=== PATIENT | female | born 1970 | race Caucasian/White ===

== ENCOUNTER 2021-09-15 02:50 | Inpatient (IN) | payer SELFPAY ==
[2021-09-15 05:17] VITALS: BMI 45.9
[2021-09-15] MEDS ORDERED: Albuterol 200 PUFF (6.7GM INHALER) INH PRN (07:53)
[2021-09-15] MEDS ORDERED: Acetaminophen 325 MG TAB PO PRN (07:53)
[2021-09-15] MEDS ORDERED: Acetaminophen 650 MG Suppository PR PRN (07:53)
[2021-09-15] MEDS ORDERED: Benzonatate 100 MG CAP PO PRN (07:53)
[2021-09-15] MEDS ORDERED: Prevnar 13-Val Conj/PF 0.5 ML SYRINGE IM ONE (09:00)
[2021-09-15] MEDS ORDERED: Non-Formulary Item 1 EACH (Multivitamin [Multivitamin] 1 EACH Tablet) PO SCH (09:00)
[2021-09-15] MEDS: Dexamethasone 10 MG/ML VIAL SLOW IVP SCH (09:27)
[2021-09-15] MEDS: Hydrochlorothiazide 25 MG TAB PO SCH (09:27)
[2021-09-15] MEDS: Cholecalciferol (Vitamin D3) 400 UNITS TAB PO SCH (09:27)
[2021-09-15] MEDS: Zinc Sulfate 220 MG CAP PO SCH (09:27)
[2021-09-15] MEDS: Lisinopril 20 MG TAB PO SCH (09:27)
[2021-09-15] MEDS: Ascorbic Acid 500 mg Chewable Tablet PO SCH (09:27)
[2021-09-15] MEDS: Multivit, Therapeutic 1 TAB PO SCH (09:27)
[2021-09-15 09:32] LABS: HBCM Index 0.11 S/CO (0-0.79); HBSAg Index 0.22 S/CO (0-0.99); Hep A IgM AB Non-Reactive (NonReactive); Hep A IgM S/CO 0.17 S/CO (0-0.79); Hep B Surf Ag Non-Reactive S/CO (NonReactive); Hep C IgG Ab Non-Reactive (NonReactive); Hep C Index 0.27 S/CO (0-0.79); Hepatitis B Core IgM Abs Non-Reactive (NonReactive)
[2021-09-15] MEDS ORDERED: REMDESIVIR 200 MG in Sodium Chloride 0.9% 250 ML 210 ML IV SCH (10:00)
[2021-09-15 12:04] LABS: SARS-CoV-2 PCR by NAA DETECTED (NotDetected)
[2021-09-16 04:25] LABS: Hemoglobin 11.1 g/dL (12.0-16.0); Mean Corpuscular HGB CONC 30.9 g/dL (32.0-36.0); Mean Corpuscular Hemoglobin 24.2 pg (27.0-31.0); Mean Corpuscular Volume 78.1 fL (78.0-98.0); Mean Platelet Volume 7.7 fL (7.4-10.4); Platelet Count 222 thou/uL (130-400); White Blood Cell (WBC) Count 3.4 thou/uL (4.8-10.8)
[2021-09-16 04:32] LABS: Prothrombin Time 13.6 sec (12.0-14.7)
[2021-09-16 04:34] LABS: ALT (SGPT) 100 U/L (8-55); AST (SGOT) 82 U/L (5-34); Albumin 3.4 g/dL (3.5-5.0); Alkaline Phosphatase 125 U/L (40-110); Anion Gap 13 mmol/L (10-20); BUN (Urea Nitrogen) 17 mg/dL (7.0-18.7); Bilirubin, Direct 0.2 mg/dL (0.1-0.3); Bilirubin, Total 0.3 mg/dL (0.2-1.2); CRP (Inflammatory) 1.13 mg/dL (= or < 0.5); Calc. Creatinine Clearance 148 mL/min (70-130); Calcium 8.4 mg/dL (7.8-10.44); Carbon Dioxide 25 mmol/L (22-29); Chloride 103 mmol/L (98-107); D-Dimer Test 1.44 *mcg/mL (0.27-0.43); Glucose 112 mg/dL (70-105); Potassium 3.5 mmol/L (3.5-5.1); Protein, Total 6.8 g/dL (6.0-8.3); Sodium 137 mmol/L (136-145)
[2021-09-16 05:02] LABS: Actual Bicarbonate (HCO3v) 27 mEq/L (22-28); Base Excess 1.7 mEq/L (-2.0 to +3.0); Calcium, Ionized (venous) 1.09 mmol/L (1.16-1.32); Chloride (VBG) 102 mmol/L (98-106); Hemoglobin (Hb) 11.7 g/dL (11.7-16.0); Potassium (VBG) 3.43 mmol/L (3.70-5.30); Sodium 137.9 mmol/L (133-146); pH (venous) 7.42 (7.32-7.43)
[2021-09-16 05:14] LABS: Band 6 % (5-11); Lymphocytes 25 % (21-51); MDiff Complete? YES; Monocytes 12 % (0-10); Neutrophil 57 % (42-75)
[2021-09-16] MEDS ORDERED: REMDESIVIR 100 MG in Sodium Chloride 0.9% 250 ML 230 ML IV SCH (10:00)
[2021-09-16] MEDS: Zinc Sulfate 220 MG CAP PO SCH (10:27)
[2021-09-16] MEDS: Multivit, Therapeutic 1 TAB PO SCH (10:27)
[2021-09-16] MEDS: Hydrochlorothiazide 25 MG TAB PO SCH (10:27)
[2021-09-16] MEDS: Cholecalciferol (Vitamin D3) 400 UNITS TAB PO SCH (10:28)
[2021-09-16] MEDS: Dexamethasone 10 MG/ML VIAL SLOW IVP SCH (10:29)
[2021-09-16] MEDS: Ascorbic Acid 500 mg Chewable Tablet PO SCH (10:29)
[2021-09-16] MEDS: Lisinopril 20 MG TAB PO SCH (10:29)
[2021-09-16 12:36] VITALS: BP 141/87; TEMP 97.6
== END 2021-09-16 15:58 | disposition home or self-care (01) | DRG 177 ==
LOC: T4-A 02:50 → OBSVTOIN 07:53
PROVIDERS: ADMIT Internal Medicine; ATTEND Internal Medicine
PROC: 8E0ZXY6 Isolation (ICD-10-PCS; principal; 2021-09-15)
PROC: XW033E5 Introduction of Remdesivir Anti-infective into Peripheral Vein, Percutaneous Approach, New Technology Group 5 (ICD-10-PCS; 2021-09-15)
DX: U07.1 COVID-19 (principal); J12.82 Pneumonia due to coronavirus disease 2019; J96.01 Acute respiratory failure with hypoxia; I10 Essential (primary) hypertension; G43.909 Migraine, unspecified, not intractable, without status migrainosus; I78.0 Hereditary hemorrhagic telangiectasia; Z86.73 Personal history of transient ischemic attack (TIA), and cerebral infarction without residual deficits; Z98.890 Other specified postprocedural states; Z98.51 Tubal ligation status; Z79.899 Other long term (current) drug therapy
CPT/HCPCS: 36415; 80048; 80074; 80076; 82728; 82805; 83615; 85025; 85379; 85610; 86140; J0248; J1100; J7050; U0003; U0005

== ENCOUNTER 2023-09-14 19:26 | Inpatient (IN) | payer SELFPAY ==
[2023-09-14 20:05] VITALS: BMI 48.0
[2023-09-14] MEDS ORDERED: Ondansetron PF 4 MG/2 ML Vial IVP PRN (20:47)
[2023-09-14] MEDS: Labetalol HCl 100 MG/20 ML VIAL SLOW IVP SCH (21:30)
[2023-09-14] MEDS: Acetaminophen 325 MG TAB PO PRN (21:31)
[2023-09-14 23:15] LABS: #Basophils 0.05 10x3/uL (0.0-0.2); %Basophils 0.5 % (0.0-1.0); %Eosinophils 2.4 % (0.0-10.0); %Lymphocytes 20.1 % (21.0-51.0); %Monocytes 7.4 % (0.0-10.0); %Neutrophils 69.1 % (42.0-75.0); Hematocrit 31.9 % (36.0-47.0); Hemoglobin 9.1 g/dL (12.0-16.0); Mean Corpuscular HGB CONC 28.5 g/dL (32.0-36.0); Mean Corpuscular Hemoglobin 19.5 pg (27.0-31.0); Mean Corpuscular Volume 68.5 fL (78.0-98.0); Mean Platelet Volume 9.5 fL (7.4-10.4); Platelet Count 230 10x3/uL (130-400); RBC Distribution Width 19.9 % (11.5-14.5); Red Blood Cell (RBC) Count 4.66 mill/uL (4.20-5.40)
[2023-09-14 23:26] LABS: Iron 23 ug/dL (50-170); Iron Binding Capacity, Total 409 mcg/dL (265-497)
[2023-09-14 23:28] LABS: Troponin I 0.014 ng/mL (< 0.028)
[2023-09-14 23:52] LABS: Anisocytosis SLIGHT = 6-15 cells HPF (0-5); Hypochromia SLIGHT = 6-15 cells HPF (0-5); Microcytosis SLIGHT = 6-15 cells HPF (0-5); Platelet Adequacy Comment Platelets Normal; Polychromasia SLIGHT = 2-3 cells HPF (0-2)
[2023-09-15 04:39] LABS: #Basophils 0.06 10x3/uL (0.0-0.2); %Basophils 0.7 % (0.0-1.0); %Eosinophils 1.9 % (0.0-10.0); %Lymphocytes 21.8 % (21.0-51.0); %Monocytes 9.8 % (0.0-10.0); %Neutrophils 65.5 % (42.0-75.0); Hematocrit 29.7 % (36.0-47.0); Hemoglobin 8.6 g/dL (12.0-16.0); Mean Corpuscular Hemoglobin 19.7 pg (27.0-31.0); Mean Corpuscular Volume 68.1 fL (78.0-98.0); Mean Platelet Volume 9.3 fL (7.4-10.4); Platelet Count 353 10x3/uL (130-400); RBC Distribution Width 19.5 % (11.5-14.5); Red Blood Cell (RBC) Count 4.36 mill/uL (4.20-5.40)
[2023-09-15 04:50] LABS: Anion Gap 12 mmol/L (10-20); BUN (Urea Nitrogen) 14 mg/dL (9.8-20.1); Calc. Creatinine Clearance 175 mL/min (70-130); Calcium 8.5 mg/dL (7.8-10.44); Carbon Dioxide 26 mmol/L (22-29); Chloride 105 mmol/L (98-107); Estimated GFR 106; Glucose 95 mg/dL (70-105); Potassium 3.3 mmol/L (3.5-5.1); Sodium 140 mmol/L (136-145)
[2023-09-15 05:20] LABS: Anisocytosis SLIGHT = 6-15 cells HPF (0-5); Hypochromia SLIGHT = 6-15 cells HPF (0-5); Microcytosis SLIGHT = 6-15 cells HPF (0-5); Platelet Adequacy Comment Platelets Normal; Polychromasia SLIGHT = 2-3 cells HPF (0-2)
[2023-09-15] MEDS: Furosemide 20 MG (2 mL) VIAL SLOW IVP SCH (06:34)
[2023-09-15] MEDS: Potassium Chloride 20 MEQ TAB PO SCH (08:55)
[2023-09-15] MEDS: Carvedilol 25 MG TAB PO SCH ×2 (08:55→17:10)
[2023-09-15] MEDS: Ferrous Sulfate 325 MG TAB PO SCH (08:55)
[2023-09-15] MEDS: Lisinopril 20 MG TAB PO SCH (08:55)
[2023-09-15] MEDS ORDERED: Lisinopril 20 MG TAB PO SCH (09:00)
[2023-09-15] MEDS: Sodium Ferric Gluconate 250 MG in Sodium Chloride 0.9% 250 ML 250 ML IVPB SCH (11:28)
[2023-09-16 04:20] LABS: #Basophils 0.07 10x3/uL (0.0-0.2); %Basophils 0.7 % (0.0-1.0); %Eosinophils 1.8 % (0.0-10.0); %Monocytes 9.4 % (0.0-10.0); %Neutrophils 67.6 % (42.0-75.0); Hematocrit 30.9 % (36.0-47.0); Hemoglobin 8.7 g/dL (12.0-16.0); Mean Corpuscular HGB CONC 28.2 g/dL (32.0-36.0); Mean Corpuscular Hemoglobin 19.5 pg (27.0-31.0); Mean Corpuscular Volume 69.1 fL (78.0-98.0); Mean Platelet Volume 9.2 fL (7.4-10.4); Platelet Count 365 10x3/uL (130-400); RBC Distribution Width 19.9 % (11.5-14.5); Red Blood Cell (RBC) Count 4.47 mill/uL (4.20-5.40)
[2023-09-16 05:02] LABS: Anisocytosis SLIGHT = 6-15 cells HPF (0-5); Hypochromia SLIGHT = 6-15 cells HPF (0-5); Microcytosis SLIGHT = 6-15 cells HPF (0-5); Platelet Adequacy Comment Platelets Normal; Polychromasia SLIGHT = 2-3 cells HPF (0-2)
[2023-09-16 05:15] LABS: Anion Gap 13 mmol/L (10-20); BUN (Urea Nitrogen) 21 mg/dL (9.8-20.1); Calc. Creatinine Clearance 147 mL/min (70-130); Calcium 8.8 mg/dL (7.8-10.44); Carbon Dioxide 26 mmol/L (22-29); Chloride 103 mmol/L (98-107); Estimated GFR 89; Glucose 106 mg/dL (70-105); Potassium 3.5 mmol/L (3.5-5.1); Sodium 138 mmol/L (136-145)
[2023-09-16] MEDS ORDERED: Furosemide 20 MG TAB PO SCH (09:00)
[2023-09-16] MEDS: Potassium Chloride 20 MEQ TAB PO SCH (09:28)
[2023-09-16] MEDS: Sodium Ferric Gluconate 250 MG in Sodium Chloride 0.9% 250 ML 250 ML IVPB SCH (09:28)
[2023-09-16] MEDS: Hydrochlorothiazide 25 MG TAB PO SCH (09:28)
[2023-09-16 15:50] VITALS: BP 158/96; TEMP 97.5
== END 2023-09-16 17:23 | disposition home or self-care (01) | DRG 291 ==
LOC: 2SW 19:26
PROVIDERS: ADMIT Emergency Medicine; ATTEND Internal Medicine
DX: I11.0 Hypertensive heart disease with heart failure (principal); I50.33 Acute on chronic diastolic (congestive) heart failure; I16.1 Hypertensive emergency; D63.8 Anemia in other chronic diseases classified elsewhere; G43.909 Migraine, unspecified, not intractable, without status migrainosus; M79.7 Fibromyalgia; E87.6 Hypokalemia; D50.9 Iron deficiency anemia, unspecified; I78.0 Hereditary hemorrhagic telangiectasia; Z86.73 Personal history of transient ischemic attack (TIA), and cerebral infarction without residual deficits; Z90.49 Acquired absence of other specified parts of digestive tract; Z79.899 Other long term (current) drug therapy
CPT/HCPCS: 36415; 70450; 71045; 80048; 82728; 83540; 83550; 83735; 85025; 93306; J1940; J2916; J7050